=== PATIENT | female | born 1965 | race Two or more races ===

== ENCOUNTER 2024-04-28 12:08 | Emergency (ER) | payer OTHER ==
[~2024-04-28] VITALS: Ht 177.8 cm; Wt 108.9 kg
[~2024-04-28 12:08] MED LIST: FOLIC ACID0.8 M1; HYDROXYCHLOROQ200 MG; RAYOS5 MG; TREXALL5 MG
[2024-04-28] MEDS ORDERED: ZOCOR40 MG PO (12:32)
[2024-04-28] MEDS ORDERED: TETANUS & DIPHTHERIA TOX,ADULT 0.5 ML VIAL IM ONE (12:45)
[2024-04-28] MEDS ORDERED: CLINDAMYCIN PHOSPHATE 150 MG/ML (600mg) IM ONE (13:00)
== END 2024-04-28 13:47 | disposition home or self-care (01) ==
LOC: ER 12:09
DX: S51.852A Open bite of left forearm, initial encounter (principal); W54.0XXA Bitten by dog, initial encounter; Y93.89 Activity, other specified; Y92.89 Other specified places as the place of occurrence of the external cause